=== PATIENT | female | born 1975 | race Caucasian/White ===

== ENCOUNTER 2018-02-13 07:05 | Day surgery (SDC) | payer OTHER, SELFPAY ==
[2018-02-12 10:56] VITALS: BMI 26.6
--- NOTE | 2018-02-13 | SKTAG_PTH ---
PATIENT: JEEVAN PRATT [place] [facility] [id number] AGE/SX: 42/F ROOM: RE02/13/[address]: Dr. Deirdre Logan MD : 1975 BED: DIS: 02/13/2018 SPEC #: [id number] RECD: 02/13/18 12:51 STATUS: JONO ELVER #: [id number] SURY: 02/13/18 00:[address]: Deirdre Malcolm DEPT: SURGICAL PATHOLOGY RECD BY: Parveen Frias ENTERED: 02/13/18 12:52 SP TYPE: SKIN TAG OTHR DR: Kaley Owusu PA-C Tissues: A - Labium, NOS B - Vulva, NOS C - Vulva, NOS Procedures: Surgery Specimen Level IV HEADER OPERATION: Excision vulvar cyst, left skin tag removal, punch biopsy left PRE-OP DIAGNOSIS: Vulvar cyst, skin tag of vulva TISSUE SUBMITTED: A ? Skin tags left labia, B ? Vulvar cyst, C ? Punch biopsy left vulva MICROSCOPIC DIAGNOSIS A. Skin tags, left labia, biopsy: Intradermal nevi x2. B. Vulvar cyst: Consistent with fibroma. See comment. C. Left vulva, punch biopsy: Dermal chronic inflammation. Hyperkeratosis and parakeratosis. Negative for malignancy. SJ:polo 02/14/18 COMMENT B - Immunohistochemistry ([id number]) supports the above diagnosis. Case has been reviewed in consultation with Dr. Felipe who concurs with the above diagnosis. IDC:AM MICROSCOPIC DESCRIPTION Slides are reviewed. GROSS DESCRIPTION A - Received in fixative is one container labeled with the patient's name and designated skin tags left labia. The specimen consists of a polypoid piece of andrade-white skin measuring 1 x 0.5 x 0.4 cm. Also present in the container is a piece of andrade soft tissue measuring 0.3 x 0.2 x 0.1. The entire specimen is submitted in one cassette. B - Received in fixative is one container labeled with the patient's name and designated vulvar cyst. The specimen consists of a piece of andrade, nodular tissue measuring 2.5 x 1.5 x 1.5 cm. The specimen is inked and reveals andrade, solid cut surfaces. The entire specimen is submitted in three cassettes. C - Received in fixative is one container labeled with the patient's name and designated punch biopsy left vulva. The specimen consists of a punch biopsy of andrade-white skin measuring 0.3 cm in diameter and 0.3 cm in length. The specimen is totally submitted in one cassette. / NISREEN:polo 02/13/18 TC:1 CPT: 95776 x3
--- NOTE | 2018-02-13 | IMM_PTH ---
PATIENT: JEEVAN PRATT LOC: [facility] – [place] U#:[id number] AGE/SX: 42/F ROOM: RE02/13/[address]: Dr. Deirdre Logan MD : 1975 BED: DIS: 02/13/2018 SPEC #: [id number] RECD: 02/14/18 07:43 STATUS: JONO REQ #: [id number] SURY: 02/13/18 00:[address]: Deirdre Malcolm DEPT: IMMUNOHISTOCHEMISTRY RECD BY: Judith Wilson ENTERED: 02/17/18 07:44 SP TYPE: IMMUNO OTHR DR: Kaley Owusu PA-C Tissues: Vulva, NOS Procedures: SMA (add) CD34 (add) DESMIN (add) Vimentin (initial) S-100 (add) PHYSICIAN & INSTITUTION [place] [id number] SPECIMEN INFORMATION: Tissue Source: B ? Vulvar cyst Clinical Info: Vulvar cyst Specimen Number: [id number] B3 CPT code: 10636, 78075 x4 METHODOLOGY: Deparaffinized sections of prefer/formalin-fixed tissue or PAP/DQ stained slides are incubated with monoclonal/polyclonal antibodies/oligonucleotide probes. Localization is made via biotin free immunoperoxidase method. Appropriate controls are performed and reacted as expected. Results on target cell population are indicated in the following table: RESULTS: ANTIBODY / CLONE RESULT Block B3 Vimentin (V9) positive Desmin (CE-R-11) negative S-100 (4C4.9) negative CD34 (QBEnd-10) negative Actin (1A4) negative These tests were developed and their performance characteristics determined by [facility]. They may not have been cleared or approved by the U.S. Food and Drug Administration. The FDA has determined that such clearance or approval is not necessary. INTERPRETATION: B. Vulvar cyst: Consistent with fibroma. NISREEN:polo 02/17/18 Case has been reviewed in consultation with Dr. Felipe who concurs with the above diagnosis. IDC:AM
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
[2018-02-13 07:42] LABS: Internal QC Validated? YES +Cl - CLEAR BKGD; Pregnancy, Urine Negative Negative
[2018-02-13 07:45] LABS: Hematocrit 41.1 % (37-47); Hemoglobin 13.7 g/dl (12.0-15.0); Mean Corp Hgb Conc 33.3 g/gl (32-36); Mean Corpuscular Hgb 29.9 pg (27.0-32.0); Mean Corpuscular Volume 89.7 fL (81-99); Mean Platelet Vol. 10.5 fl (6.2-12.0); Platelet Count 192 K/mm3 (150-450); RBC Distribution Width CV 12.5 % (11.6-14.6); RBC Distribution Width SD 40.9 fl (35.1-43.9); Red Blood Count 4.58 M/mm3 (4.2-5.4); White Blood Count 5.8 K/mm3 (4.4-11.0)
[2018-02-13 07:46] LABS: Scan Indicated on CBC? Y/N NO
[2018-02-13 07:52] VITALS: BP 138/87; PULSE 63; RESP 16; TEMP 36.6; O2SAT 100; BMI 26.4
[2018-02-13 07:55] LABS: International Normalized Ratio 1.1
[2018-02-13 07:56] LABS: Partial Thromboplast Time 29.6 Seconds (24.1-36.2)
[2018-02-13] MEDS: Vasopressin 20 UNITS/ML Vial (09:37)
[2018-02-13] MEDS: Silver Sulfadiazine 1% Crm 50 gm Bottle 1 APPLIC TOPICAL (10:25)
[2018-02-13 10:41] VITALS: BP 121/80; BP 138/87; PULSE 98; RESP 16; TEMP 36.4; O2SAT 99
--- NOTE | 2018-02-13 10:50 | PCM.DC ---
- Discharge Diagnoses Reason(s) for Visit for Discharge Instructions: Vulvar cyst and skin tags removal You will use the following diet at home:: No restrictions Your food should be the consistency of: Regular Your liquids should be the consistency of: Regular/Thin Discharge Activity: Return to Normal Activity, May not drive while taking narcotic pain medications., May Shower, May Take a Tub Bath, - - Avoid prolonged sitting, bicycling, horseback riding or any activities requiring a saddle or harness May resume sexual activity in: - - 2-4 weeks Lifting Restrictions: 10- 20 lb Call your doctor if you observe: Fever of 101 or Higher, Inability to urinate, Inability to have a bowel movement, Using more than one pad per hour, Shortness of breath, Uncontrolled pain Cleanse incision/area with: Soap & Water Additional Dressing/Incision Instructions:: Apply silver sulfadiazine cream to surgical sites twice daily x 1 weeks Allergies/Adverse Reactions: Allergies Penicillins [PCN] Allergy (Verified 02/07/18 13:29) Hives Medications to take at Discharge Fluticasone 0.05% [Flonase Nasal [place]] 1 spray NASAL DAILY 06/06/15 L.acidoph,Paracasei, B.lactis [Probiotic] 1 each PO DAILY 02/07/18 Ibuprofen 600 mg PO TID #30 tab 02/13/18 Oxycodone [Oxyir] 5 mg PO Q6H PRN PRN 1 Days #4 tablet 02/13/18 Silver Sulfadiazine 1% Crm [Silvadene Cream] 1 applic TOPICAL BID bottle 02/13/18 The following prescriptions were given: Oxycodone [Oxyir] 5 mg PO Q6H PRN PRN 1 Days #4 tablet PRN Reason: Severe Pain (6-10/10) Ibuprofen 600 mg PO TID #30 tab Primary Care Physician: Kaley Owusu PA-C [Primary Care Provider] - Test Results: Test results from this visit will be discussed in further detail at your follow-up appointment, if applicable. Please Follow Up With: Deirdre Benoit MD When: 2 weeks
--- NOTE | 2018-02-13 10:54 | DCINST_ITS ---
- Discharge Diagnoses Reason(s) for Visit for Discharge Instructions: Vulvar cyst and skin tags removal You will use the following diet at home:: No restrictions Your food should be the consistency of: Regular Your liquids should be the consistency of: Regular/Thin Discharge Activity: Return to Normal Activity, May not drive while taking narcotic pain medications., May Shower, May Take a Tub Bath, - - Avoid prolonged sitting, bicycling, horseback riding or any activities requiring a saddle or harness May resume sexual activity in: - - 2-4 weeks Lifting Restrictions: 10- 20 lb Call your doctor if you observe: Fever of 101 or Higher, Inability to urinate, Inability to have a bowel movement, Using more than one pad per hour, Shortness of breath, Uncontrolled pain Cleanse incision/area with: Soap & Water Additional Dressing/Incision Instructions:: Apply silver sulfadiazine cream to surgical sites twice daily x 1 weeks Allergies/Adverse Reactions: Allergies Penicillins [PCN] Allergy (Verified 02/07/18 13:29) Hives Medications to take at Discharge Fluticasone 0.05% [Flonase Nasal [place]] 1 spray NASAL DAILY 06/06/15 L.acidoph,Paracasei, B.lactis [Probiotic] 1 each PO DAILY 02/07/18 Ibuprofen 600 mg PO TID #30 tab 02/13/18 Oxycodone [Oxyir] 5 mg PO Q6H PRN PRN 1 Days #4 tablet 02/13/18 Silver Sulfadiazine 1% Crm [Silvadene Cream] 1 applic TOPICAL BID bottle The following prescriptions were given: Oxycodone [Oxyir] 5 mg PO Q6H PRN PRN 1 Days #4 tablet PRN Reason: Severe Pain (6-10/10) Ibuprofen 600 mg PO TID #30 tab Primary Care Physician: Kaley Owusu PA-C [Primary Care Provider] - Test Results: Test results from this visit will be discussed in further detail at your follow- up appointment, if applicable. Please Follow Up With: Deirdre Benoit MD When: 2 weeks
[2018-02-13 11:00] VITALS: BP 133/91; BP 138/87; PULSE 83; RESP 16; O2SAT 98
[2018-02-13 11:15] VITALS: BP 134/90; BP 138/87; PULSE 82; RESP 16; O2SAT 98
[2018-02-13 11:25] VITALS: BP 131/93; BP 138/87; PULSE 67; RESP 16; TEMP 36.8; O2SAT 97
[2018-02-13 12:30] VITALS: BP 127/66; BP 138/87; PULSE 67; RESP 16; TEMP 36.7; O2SAT 100
--- NOTE | 2018-02-14 06:45 | OP.PCM_ITS ---
Problem List (1) Vulvar cyst Status: Acute (2) Skin tag of vulva Status: Chronic Report of Operation Date of Procedure: 02/13/18 Pre-Operative Diagnosis: Vulvar cyst, vulvar skin tag, vulvar ulceration Post-Operative Diagnosis: Vulvar cyst, vulvar skin tag, vulvar ulceration Surgery/Procedure Performed:: 1. Left vulvar mass excision. 2. Left vulvar skin tags removal. 3. Left vular punch biopsy Description of Surgical Findings:: 22mm solid nodule removed from left vulva Two skin tags Punch biopsy of area with fine skin erosion just left of perineum Type of Anesthesia:: General Anesthesiologist: Stepan Saunders Specimen's removed: 1. Left vulvar mass/cyst. 2. Left vulvar skin tags x 2. 3. Left vulvar punch biopsy Estimated Blood Loss (mL): 5 Description of Procedure: Kaye was brought to the OR and sign in performed. She was placed into dorsal supine position and induced under anesthesia and LMA placed. She was repositioned into dorsolithotomy and an examination under anesthesia was performed. The perineum and vagina were prepped and draped in sterile fashion and time out performeed. Stay sutures of 3-0 Vicryl were placed to retract the left labia minora to the outer vulva and groin. A total of 20cc of dilute vasopressin (20U in 100 mL Normal saline) was injected around the vulvar cyst/ nodule bed. A 2cm superficial incision was made on the internal labial surface and careful sharp and blunt dissection performed enucleating the cyst in its entirety from the labia. The cyst appeared to be above the layer of the muscular tissues. The connective tissues were reapproximated using 3-0 Vicryl Rapide and the skin was reapproximated using the same suture with horizontal mattress sutures. The labial retraction sutures were cut and removed. There was a 1cm and a subcentimeter skin tag on the left labia majora. The larger one was grasped using an Allis clamp and shave biopsy performed. There remaining skin was reapproximated using 3-0 Vicryl Rapide simple interrupted sutures. In similar fashion the smaller skin tag was removed. There was hemostasis and no suture was needed. Attention was turned to the left posterior forchette where there appeared to be a patch of small erosive lesion. A 3mm punch biopsy was performed. A single suture of 3-Vicryl Rapide was placed with hemostasis. Silver sulfadiazine cream was placed on the surgical sites. The patient was then placed in the dorsal supine position, awakened, extubated and transferred to the recovery room without complication. Sponge and needle counts were correct x 2. - Complications None - Admit VTE Documentation VTE Present on Admission: No VTE Mechan Device Prophylaxis: SCD's VTE Pharm Prophylaxis ordered?: No
== END 2018-02-13 12:46 | disposition home or self-care (01) ==
LOC: SDC 07:07 → AC 07:08
PROVIDERS: Family Provider Family Medicine; PCP Family Medicine; Visit Provider Obstetrics & Gynecology
PROC: (CPT 11200; principal; 2018-02-13 08:30)
DX: N90.7 Vulvar cyst (principal); D28.0 Benign neoplasm of vulva; N90.4 Leukoplakia of vulva; I10 Essential (primary) hypertension; J45.909 Unspecified asthma, uncomplicated
CPT/HCPCS: 11200; 11423; 81025; 85027; 85610; 85730; 86850; 86900; 88305; 88341; 88342; J7120; J2405

== ENCOUNTER → 2018-02-21 15:12 | Outpatient (CLI) | payer OTHER, SELFPAY ==
[2018-02-21 16:32] LABS: Hematocrit 41.9 % (37-47); Hemoglobin 14.3 g/dl (12.0-15.0); Mean Corp Hgb Conc 34.1 g/gl (32-36); Mean Corpuscular Hgb 30.3 pg (27.0-32.0); Mean Corpuscular Volume 88.8 fL (81-99); Mean Platelet Vol. 10.9 fl (6.2-12.0); Platelet Count 250 K/mm3 (150-450); RBC Distribution Width CV 12.6 % (11.6-14.6); RBC Distribution Width SD 40.4 fl (35.1-43.9); Red Blood Count 4.72 M/mm3 (4.2-5.4); White Blood Count 8.6 K/mm3 (4.4-11.0)
[2018-02-21 16:33] LABS: Scan Indicated on CBC? Y/N NO
== END ==
PROVIDERS: Visit Provider Obstetrics & Gynecology
DX: T14.8XXA Other injury of unspecified body region, initial encounter (principal)
CPT/HCPCS: 36415; 85027

== ENCOUNTER → 2021-11-02 | Outpatient (CLI) | payer MEDICAID, SELFPAY ==
[2021-11-02 11:15] LABS: Absolute Lymphocyte Count 2.09 X10^3/uL (0.83-4.51); Absolute Neutrophil Count 3.8 X10^3/uL (2.0-7.7); Basophil% 1.4 % (0-1); Eosinophil# 0.28 X10^3/uL; Hemoglobin 10.6 g/dL (12.0-15.0); Lymphocyte # 2.09 X10^3/ul (0.83-4.51); Lymphocyte % 30.2 % (19-41); Mean Corp Hgb Conc 31.2 g/dL (32-36); Mean Corpuscular Hgb 25.5 pg (27.0-32.0); Mean Corpuscular Volume 81.7 fL (81-99); Mean Platelet Vol. 10.8 fl (6.2-12.0); Monocyte# 0.61 X10^3/uL; Monocyte% 8.8 % (0-10); NRBC Flagged by Analyzer 0 % (0-5); Neutrophil # 3.83 X10^3/uL (2.7-7.7); Neutrophil % 55.3 % (47-70); Platelet Count 309 K/mm3 (150-450); RBC Distribution Width CV 14.3 % (11.6-14.6); Red Blood Count 4.16 M/mm3 (4.2-5.4); White Blood Count 6.9 K/mm3 (4.4-11.0)
[2021-11-02 11:18] LABS: Erythrocyte Sedimentation Rate 4 mm/hr (0-30)
[2021-11-02 12:00] LABS: ALB/GLOB Ratio 1.1 RATIO (0.9-2.4); AST(SGOT) 18 U/L (15-37); Alanine Aminotransfer ALT/SGPT 22 U/L (13-56); Albumin, Serum 3.8 g/dL (3.2-5.0); Alkaline Phosphatase 41 U/L (45-117); Anion Gap 6 (5-15); BUN 9 mg/dL (7-18); CRP < 2.90 mg/L (0.0-3.0); Calcium,Total 8.7 mg/dL (8.5-10.1); Chloride 107 mmol/L (98-107); Creatinine, Serum 0.82 mg/dL (0.55-1.02); EST Glomerular Filtration Rate 80 mL/min (>60); Est Glom Filt Rate - Afr Amer 97 mL/min (>60); Globulin 3.5 g/dL (2.2-4.2); Glucose 91 mg/dL (74-106); Potassium 3.7 mmol/L (3.5-5.1); Protein, Total 7.3 g/dL (6.4-8.2); Sodium Level 139 mmol/L (136-145)
[2021-11-03 14:10] LABS: Anti-Centromere B Ab <0.2 AI (0.0-0.9); Anti-Chromatin <0.2 AI (0.0-0.9); Anti-Jo <0.2 AI (0.0-0.9); Anti-Scleroderma-70 AB <0.2 AI (0.0-0.9); RNP Ab 0.2 AI (0.0-0.9); SJOGREN'S Anti-SS-A test < 0.2 AI (0.0-0.9); SJOGREN'S Anti-SS-B test < 0.2 AI (0.0-0.9); Smith Ab <0.2 AI (0.0-0.9)
[2021-11-03 14:52] LABS: Bilirubin, Direct 0.35 mg/dL (0.00-0.30)
[2021-11-03 16:41] LABS: Anti-dsDNA Ab 1 IU/mL (0-9)
== END | disposition home or self-care (01) ==
LOC: LAB 10:28
PROVIDERS: PCP Family Medicine; Referring Provider Nurse Practitioner Adult Health; Visit Provider Nurse Practitioner Adult Health
DX: K22.4 Dyskinesia of esophagus (principal); R12 Heartburn; I69.891 Dysphagia following other cerebrovascular disease; R13.10 Dysphagia, unspecified
CPT/HCPCS: 36415; 80053; 82248; 85025; 85652; 86140; 86225; 86235

== ENCOUNTER → 2021-11-10 | Outpatient (CLI) | payer MEDICAID, SELFPAY ==
--- NOTE | 2021-11-10 11:08 | US_ITS ---
STUDY: ABDOMINAL ULTRASOUND - RIGHT UPPER QUADRANT REASON FOR VISIT: Female, 46 years old. ABDOMEN PAIN elevated bilirubin -- RUQ US TECHNIQUE: Ultrasound evaluation of the right upper quadrant was performed with real-time and static arnold-scale imaging. TECHNICAL QUALITY: Adequate. COMPARISON: None. FINDINGS: Liver: There is normal echogenicity of the liver. The bile ducts are within normal limits. There is hepatic color flow. The direction of portal flow is hepatopetal. There is no demonstrated mass lesion. Gallbladder: Normal distended gallbladder. The gallbladder wall measures 1.8 mm. There is a negative sonographic Solis''s sign. There is no pericholecystic fluid. There are no gallstones. Common Bile Duct (C.B.D.): The common bile duct measures ( in mm): 4.7 Pancreas: Normal size of the head, body of the pancreas. There is normal echogenicity of the pancreas. There is no demonstrated pancreatic mass or cyst. Right Kidney: Normal size of the right kidney. The right kidney measures 10.7 cm. . Normal renal cortex. There is no demonstrated renal mass or cyst. There is no right hydronephrosis. Aorta: It is not visualized. There is too much overlying bowel gas. . US/Abdomen Limited IMPRESSION: No acute findings. Note: Renal size measurements and size measurements of other organs etc may vary depending on modality and treating machine operator dependent variations in measurements. (i.e. Measuring a kidney on an US does not correlate with an exact same measurement on a CT.) Electronically Signed: Freedom Livingston MD at 14:22 EDT ,
--- NOTE | 2021-11-10 11:08 | RAD_ITS ---
INDICATION: dysphagia, esophageal spasms, heartburn EXAMINATION/TECHNIQUE: Thick and thin barium oral contrast , gas bubbles, and barium pill were administered to the patient. Total Fluoroscopic Time: 33 seconds AND number of Fluoroscopic Images: 9 COMPARISON: None. FINDINGS: No masses or strictures are identified. There is no hiatal hernia. The mucosal pattern is unremarkable. There is normal motility. Reflux was not elicited. RAD/Esophagus Dual Contrast IMPRESSION: Negative. Electronically Signed: Emmanuel Roper, at 12:59 EDT ,
[2021-11-10 12:39] LABS: Absolute Lymphocyte Count 1.78 X10^3/uL (0.83-4.51); Absolute Neutrophil Count 4.2 X10^3/uL (2.0-7.7); Basophil# 0.07 X10^3/uL; Eosinophil# 0.35 X10^3/uL; Hematocrit 35.4 % (37-47); Hemoglobin 10.8 g/dL (12.0-15.0); Lymphocyte # 1.78 X10^3/ul (0.83-4.51); Lymphocyte % 25.5 % (19-41); Mean Corp Hgb Conc 30.5 g/dL (32-36); Mean Corpuscular Hgb 24.8 pg (27.0-32.0); Mean Corpuscular Volume 81.2 fL (81-99); Mean Platelet Vol. 11.2 fl (6.2-12.0); Monocyte# 0.57 X10^3/uL; Monocyte% 8.2 % (0-10); NRBC Flagged by Analyzer 0 % (0-5); Neutrophil # 4.19 X10^3/uL (2.7-7.7); Platelet Count 308 K/mm3 (150-450); RBC Distribution Width CV 14.8 % (11.6-14.6); RET-HE 27.4 pg (30-35); Red Blood Count 4.36 M/mm3 (4.2-5.4); Reticulocyte Count 1.35 % (0.5-1.5)
[2021-11-10 13:11] LABS: AST(SGOT) 18 U/L (15-37); Alanine Aminotransfer ALT/SGPT 23 U/L (13-56); Alkaline Phosphatase 41 U/L (45-117); Amylase 70 U/L (25-115); Bilirubin, Direct 0.35 mg/dL (0.00-0.30); Ferritin 6 ng/mL (8-252); Globulin 3.5 g/dL (2.2-4.2); Iron 30 ug/dL (50-170); Iron Binding Capacity,Total 446 ug/dL (250-450); Lipase 162 U/L (73-393); Protein, Total 7.5 g/dL (6.4-8.2)
== END | disposition home or self-care (01) ==
PROVIDERS: PCP Family Medicine; Referring Provider Nurse Practitioner Adult Health; Visit Provider Nurse Practitioner Adult Health
DX: D64.9 Anemia, unspecified (principal); R12 Heartburn; K22.4 Dyskinesia of esophagus; R13.10 Dysphagia, unspecified; R17 Unspecified jaundice
CPT/HCPCS: 36415; 74221; 76705; 80076; 82150; 82728; 83540; 83550; 83690; 85025; 85045

== ENCOUNTER → 2021-12-15 | Outpatient (CLI) | payer MEDICAID, SELFPAY ==
[2021-12-15 15:42] LABS: Hemoglobin A1c 5.2 % (3.8-5.6)
[2021-12-15 15:54] LABS: LDH 203 U/L (84-246)
[2021-12-16 01:08] LABS: HIV - WCH Non-Reactive (Nonreactive)
[2021-12-19 14:00] LABS: Anti-Mitochondrial AB <20.0 Units (0.0-20.0)
[2021-12-19 21:07] LABS: Angiotensin Convert Enzyme 32 U/L (14-82); Ceruloplasmin 21.3 mg/dL (19.0-39.0); Cytoplasmic Ab (C-ANCA) <1:20 titer (Neg:<1:20); HEPATITIS B SURFACE AG Negative (Negative); Hep C Antibodies <0.1 s/co ratio (0.0-0.9); Hepatitis A IgM Antibody Negative (Negative); Hepatitis B Core AB IgM Negative (Negative)
[2021-12-21 12:40] LABS: Anti-Smooth Muscle ABS 6 Units (0-19); Copper, Serum or Plasma 108 ug/dL (80-158); Haptoglobin 106 mg/dL (42-296); Perinuclear Ab (P-ANCA) <1:20 titer (Neg:<1:20)
== END | disposition home or self-care (01) ==
LOC: LAB 14:09
PROVIDERS: PCP Family Medicine; Referring Provider Nurse Practitioner Adult Health; Visit Provider Nurse Practitioner Adult Health
DX: D50.9 Iron deficiency anemia, unspecified (principal); R17 Unspecified jaundice
CPT/HCPCS: 36415; 80074; 82140; 82164; 82390; 82525; 83010; 83036; 83516; 83615; 84443; 85610; 86256; 86703

== ENCOUNTER 2021-12-21 10:40 | Day surgery (SDC) | payer MEDICAID, SELFPAY ==
[2021-12-21] VITALS (7 sets, daily range): BP systolic 134–163; BP diastolic 66–98; PULSE 52–66; RESP 14–18; TEMP 36.6–36.9; O2SAT 97–100; BMI 29.6
[2021-12-21 11:19] LABS: Internal QC Validated? YES +Cl - CLEAR BKGD; Pregnancy, Urine Negative Negative
[2021-12-21] MEDS: Lactated Ringers 1,000 ML 15 ML IV (11:19)
--- NOTE | 2021-12-21 11:38 | PCM.HP.BLA ---
History and Physical Date of Admission: 12/21/21 JEEVAN PRATT, is a 46 F who presents to the office today for possible eosinophilic esophagitis.? She has had esophageal symptoms since college, they have worsened in the past half year.? Her maternal grandmother, mother and brother all have eosinophilic esophagitis.? Her brother is treated with Flovent which he swallows. For years she has sensation of food getting stuck in her midesophagus, especially shredded meats, bread and broccoli.? Has regurgitated food once.? She gets painful spasms in the esophagus which radiate to the back.? For approximately the past 4 months she has had about 1 episode per month of when she lies down to go to bed she gets significant heartburn, and a seizing feeling in her esophagus.? She has to get up out of bed, sits up, takes about 30 minutes to get the esophagus to relax.? She is only recently started getting heartburn.? No treatment other than OTC Tums at night for heartburn recently.? The spasms and muscle contractions and seizing of the esophageal muscles are most bothersome to her.? No nausea or vomiting or hematemesis.? She denies any abdominal pain.? She has no bowel complaints.? Denies diarrhea, constipation, melena, hematochezia. She has seasonal allergies, no known food allergies. She takes zyrtec and flonase daily. Hx of exercise induced asthma in agus high, not problematic as an adult, only uses albuterol inhaler with URI. No eczema. No FH atopy. Diagnosed last year with mild spinal bifida, takes gabapentin which is effective for back pain, takes meloxicam approx QOD.? Comorbidities also include depression, restless legs, tension for which she was on medication in her 20s. She has 3 children ages 12-17.? 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 No tobacco or illicit drugs.? Only rare alcohol. ROS Const Constitutional: No fatigue ENT ENT: No difficulty swallowing Gastro GI: No abdominal pain, belching, bloating, change in bowel habits, change in stool character, coffee ground emesis, constipation, cramping, diarrhea, heartburn, difficulty swallowing, feeling full early, excessive flatus, incontinent of stools, Vomiting blood/hematemesis, Blood in stool, loose stools, Black,tarry stools, nausea/dyspepsia, pain with swallowing, vomiting or other Musc Musculoskeletal: Positive for restless legs; No joint pain Skin Skin: No yellowing of the eye or itchy eyes Neuro Neurology: Positive for restless legs Psych Psychiatric: Positive for anxiety and No depression Endo Endocrine: No fatigue Aller/Imm Allergy/Immunologic: No itchy eyes Priyank/Lymp Hematologic/Lymphatic: No easy bleeding or easy bruising Exam Const General: cooperative, comfortable, well developed and well groomed Eyes General: appearance normal, both eyes and all related structures Neck Neck: normal visual inspection Resp Effort & Inspection: normal respiratory effort GI Inspection: normal to inspection Auscultation: normal bowel sounds Palpation: soft, no hepatosplenomegaly, no masses and nontender Skin General: no rashes or lesions noted Neuro Gait: normal gait Extrem General: no pedal edema Psych Mood: euthymic mood Affect: normal affect Quality Reporting Tobacco Screening ([facility] 138) Smoking Status: Never smoker Assessment and Plan Assessment and Plan (1) Esophageal spasm: ?Status:?Acute (2) Heartburn: ?Status:?Acute (3) Dysphagia: ?Status:?Inactive (4) Dysphagia: ?Status:?Acute ? ? ? Orders:?Orders: ? Comprehensive Metabolic Profil Today K22.4, R12, R13.10, R13.10 ? ? CRP Today K22.4, R12, R13.10, R13.10 ? ? CBC W/Diff, Automated Today K22.4, R12, R13.10, R13.10 ? ? Erythrocyte Sed Rate Today K22.4, R12, R13.10, R13.10 ? ? SARIKA Comprehensive Panel Today K22.4, R12, R13.10, R13.10 ? ? Esophagus Dual Contrast Today K22.4, R12, R13.10, R13.10 ?Plan - Palma Lucero COMPLIANCE PROFESSIONAL, COMPLIANCE PROFESSIONAL-C: 46-year-old female with long history of food sticking in the esophagus, esophageal spasms, and more recent heartburn.? There is a very strong family history of eosinophilic esophagitis.? We discussed that diagnosis as well as heartburn, esophageal spasms, dysphagia, Garcia's esophagus.? We will have her start PPI, Rx for pantoprazole 40 mg every morning.? We will see if that helps any of her symptoms in addition to the heartburn itself. Biochemical w/u to evaluate CBC for eosinophils, inflammatory markers, and comprehensive SARIKA panel.? She has no autoimmune disorders.? We will schedule her for EGD, we discussed possible manometry but she would like to hold off on that if possible.? In the meantime we will get an esophagram.? I will be in touch with results, and we will schedule follow-up appointment. Plan Details Other Medications: ?New: ? pantoprazole 40 mg? PO DAILY 90 tabs 1RF ?Discontinued: ? L.acidoph, paracasei,B. lactis ?? Discontinued Reason:? Pt no longer taking 1 ea? PO DAILY ? ? ? oxycodone ?? Discontinued Reason:? Pt no longer taking 5 mg? PO Q6H PRN 1 day PRN 4 TABLETS 0RF Severe Pain (6-10/10) N90.7 ? ? silver sulfadiazine 1% ?? Discontinued Reason:? Pt no longer taking 1 applic See Protocol topical BID 0RF ? ? ? ibuprofen ?? Discontinued Reason:? Pt no longer taking 600 mg? PO TID 30 tabs 0RF pain ? ? I have re-examined the patient. There are no clinical changes since date of exam.
--- NOTE | 2021-12-21 11:45 | EGD_PTH ---
PATIENT: JEEVAN PRATT LOC: [facility] U#:[id number] AGE/SX: 46/F ROOM: RE12/21/[address]: Dr. Kurt Daniels DO : 1975 BED: DIS: 12/21/2021 SPEC #: [id number] RECD: 12/21/21 14:12 STATUS: JONO ELVER #: [id number] SURY: 12/21/21 11:[address]: Kurt Daniels DEPT: SURGICAL PATHOLOGY RECD BY: Sofia Morton ENTERED: 12/22/21 08:08 SP TYPE: EGD BIOPSY OT DR: Kaley Owusu PA-C Tissues: A - Gastric mucous membrane B - Esophagus, NOS C - Esophagus, NOS Procedures: Special Stain Group II Surgery Specimen Level IV Alcian Blue/PAS (control) HEADER OPERATION: EGD ([facility]), biopsy PRE-OP DIAGNOSIS: Esophageal spasm, heartburn, dysphagia TISSUE SUBMITTED: A ? Gastric antrum biopsy for histo and H. pylori, B ? Distal esophagus biopsy, C ? Random esophagus biopsy MICROSCOPIC DIAGNOSIS A. Gastric antrum, biopsy: Mild gastritis. See microscopic description and comment. B. Distal esophagus, biopsy: A fragment of gastroesophageal mucosa with chronic inflammation. Intestinal metaplasia (goblet cell metaplasia) not identified. See comment. C. Esophagus, random biopsy: Fragments of squamous epithelium with mild congestion. AM:polo 12/25/2021 COMMENT A. The results of immunohistochemistry for Helicobacter pylori will be reported separately ([id number]). B. Alcian blue/PAS stain with matched control is used in the evaluation of the specimen. MICROSCOPIC DESCRIPTION Slides are reviewed. A. The specimen shows fragments of gastric mucosa with chronic inflammatory cell infiltrates in the lamina propria consisting of lymphocytes and plasma cells, consistent with mild chronic gastritis. GROSS DESCRIPTION A - Received in fixative is one container labeled with the patient's name and designated antrum biopsy. The specimen consists of two irregular fragments of light andrade soft tissue that in aggregate measure 0.5 x 0.3 x 0.1 cm. The specimen is totally submitted in one cassette. B - Received in fixative is one container labeled with the patient's name and designated distal esophagus biopsy. The specimen consists of one irregular fragment of light andrade soft tissue that measures 0.6 x 0.2 x 0.1 cm. The specimen is totally submitted in one cassette. C - Received in fixative is one container labeled with the patient's name and designated random esophageal biopsy. The specimen consists of multiple irregular fragments of light adnrade soft tissue that in aggregate measure 0.7 x 0.6 x 0.1 cm. The specimen is totally submitted in one cassette. / AM:polo 12/22/2021 TC:3 CPT: 49403 x3, 62934
--- NOTE | 2021-12-21 11:45 | IMM_PTH ---
PATIENT: JEEVAN PRATT LOC: [facility] U#:[id number] AGE/SX: 46/F ROOM: RE12/21/[address]: Dr. Kurt Daniels DO : 1975 BED: DIS: 12/21/2021 SPEC #: [id number] RECD: 12/22/21 09:25 STATUS: JONO ELVER #: [id number] SURY: 12/21/21 11:[address]: Kurt Daniels DEPT: IMMUNOHISTOCHEMISTRY RECD BY: Judith Wilson ENTERED: 12/22/21 09:26 SP TYPE: IMMUNO OT DR: Kaley Owusu PA-C Tissues: A - Stomach, NOS Procedures: H Pylori (initial) PHYSICIAN & INSTITUTION [place] [id number] SPECIMEN INFORMATION: Tissue Source: A ? Gastric antrum biopsy Clinical Info: Esophageal spasm, heartburn, dysphagia Specimen Number: [id number] CPT code: 66938 METHODOLOGY: Deparaffinized sections of prefer/formalin-fixed tissue or PAP/DQ stained slides are incubated with monoclonal/polyclonal antibodies/oligonucleotide probes. Localization is made via biotin free immunoperoxidase method. Appropriate controls are performed and reacted as expected. Results on target cell population are indicated in the following table: RESULTS: ANTIBODY / CLONE RESULT Block A H Pylori (polyclonal) negative These tests were developed and their performance characteristics determined by [facility]. They may not have been cleared or approved by the U.S. Food and Drug Administration. The FDA has determined that such clearance or approval is not necessary. The above immunohistochemical/dualISH markers are ordered and reviewed by the Pathologist. INTERPRETATION: A. Gastric antrum, biopsy: Negative for Helicobacter pylori organisms. NISREEN:polo 12/25/2021
--- NOTE | 2021-12-21 12:31 | OP.CCLET_ITS ---
03/07/2022 [facility] Re : Upper GI endoscopy procedure for Kaye Billy Corey Owusu This procedure was performed on December. My impressions and recommendations are as follows: Impressions : - Abnormal esophageal motility, suspicious for esophageal spasm. - Z-line, 35 cm from the incisors. Biopsied. - Erythematous mucosa in the antrum. Biopsied. - Normal second portion of the duodenum. Recommendations : - Discharge patient to home. - Resume previous diet. - Continue present medications. - Await pathology results. - Repeat upper endoscopy. - Return to GI office. My findings are described in the full procedure note, which is enclosed. If I can be of further assistance, please feel free to contact me at . Sincerely, Kurt Daniels, 12/21/2021 12:30:55 PM This report has been signed electronically.
--- NOTE | 2021-12-21 12:31 | OP.EGD_ITS ---
Patient Name: Kaye Billy Procedure Date: 12/21/2021 12:09 PM Date of : 1975 Age: 46 Procedure: Upper GI endoscopy Indications: Dysphagia Providers: Kurt Daniels DO Referring MD: Kaley Owusu Medicines: Monitored Anesthesia Care Patient Profile: This is a 46 year old female. Refer to note in patient chart for documentation of history and physical. Patient has symptoms. Complications: No immediate complications. Procedure: Pre-Anesthesia Assessment: - Prior to the procedure, a History and Physical was performed, and patient medications and allergies were reviewed. The risks and benefits of the procedure and the sedation options and risks were discussed with the patient. All questions were answered and informed consent was obtained. Patient identification and proposed procedure were verified by the physician in the pre-procedure area. Mental Status Examination: alert and oriented. Airway Examination: normal oropharyngeal airway and neck mobility. Respiratory Examination: clear to auscultation. CV Examination: normal. Prophylactic Antibiotics: The patient does not require prophylactic antibiotics. Prior Anticoagulants: The patient has taken no previous anticoagulant or antiplatelet agents. After reviewing the risks and benefits, the patient was deemed in satisfactory condition to undergo the procedure. The anesthesia plan was to use moderate sedation / analgesia (conscious sedation). Immediately prior to administration of medications, the patient was re-assessed for adequacy to receive sedatives. The heart rate, respiratory rate, oxygen saturations, blood pressure, adequacy of pulmonary ventilation, and response to care were monitored throughout the procedure. The physical status of the patient was re-assessed after the procedure. After obtaining informed consent, the endoscope was passed under direct vision. Throughout the procedure, the patient's blood pressure, pulse, and oxygen saturations were monitored continuously. The Endoscope was introduced through the mouth, and advanced to the second part of duodenum. The upper GI endoscopy was accomplished without difficulty. The patient tolerated the procedure well. Scope In: 12:20:11 PM Scope Out: 12:23:43 PM Total Procedure Duration Time 0 hours 3 minutes 32 seconds Findings: Abnormal motility was noted in the esophagus. The cricopharyngeus was abnormal. There is spasticity of the esophageal body. The distal esophagus/lower esophageal sphincter is spastic, but gives up passage to the endoscope. Tertiary peristaltic waves are noted. The Z-line was [Irregular] found 35 cm from the incisors. Biopsies were taken with a cold forceps for histology. Localized mildly erythematous mucosa without bleeding was found in the gastric antrum. Biopsies were taken with a cold forceps for histology. Verification of patient identification for the specimen was done. Estimated blood loss was minimal. The second portion of the duodenum was normal. Impression: - Abnormal esophageal motility, suspicious for esophageal spasm. - Z-line, 35 cm from the incisors. Biopsied. - Erythematous mucosa in the antrum. Biopsied. - Normal second portion of the duodenum. Recommendation: - Discharge patient to home. - Resume previous diet. - Continue present medications. - Await pathology results. - Repeat upper endoscopy. - Return to GI office. Procedure Code(s): --- Professional --- 59305, Esophagogastroduodenoscopy, flexible, transoral; with biopsy, single or multiple CPT copyright 2017 [employer]. All rights reserved. The codes documented in this report are preliminary and upon death surveys coder review may be revised to meet current compliance requirements. Kurt Daniels DO 12/21/2021 12:30:55 PM This report has been signed electronically. Number of Addenda: 1 Note Initiated On: 12/21/2021 12:09 PM Addendum Number: 1 Addendum Date: 03/07/2022 6:12:29 AM MAC was used as sedation for this procedure. Kurt Daniels DO 03/07/2022 6:12:33 AM This report has been signed electronically.
== END 2021-12-21 13:30 | disposition home or self-care (01) ==
LOC: EN 10:45 → AC 10:51
PROVIDERS: Anesthesiology; PCP Family Medicine; Referring Provider Family Medicine; Visit Provider Internal Medicine Gastroenterology
PROC: 0DJ08ZZ Inspection of Upper Intestinal Tract, Via Natural or Artificial Opening Endoscopic (ICD-10-PCS; CPT 43235; principal; 2021-12-21 11:40)
DX: K22.4 Dyskinesia of esophagus (principal); R13.10 Dysphagia, unspecified; K29.70 Gastritis, unspecified, without bleeding; K20.90 Esophagitis, unspecified without bleeding; Z79.899 Other long term (current) drug therapy
CPT/HCPCS: 43239; 81025; 82274; 88305; 88313; 88342; J7120; J2405

== ENCOUNTER → 2022-01-08 | Outpatient (CLI) | payer MEDICAID, SELFPAY ==
[2022-01-08 10:24] LABS: Absolute Lymphocyte Count 2.15 X10^3/uL (0.83-4.51); Absolute Neutrophil Count 3.2 X10^3/uL (2.0-7.7); Basophil% 1.5 % (0-1); Eosinophil# 0.38 X10^3/uL; Eosinophils% 5.8 % (0-5); Hematocrit 43.6 % (37-47); Hemoglobin 13.4 g/dL (12.0-15.0); Lymphocyte # 2.15 X10^3/ul (0.83-4.51); Lymphocyte % 33.1 % (19-41); Mean Corp Hgb Conc 30.7 g/dL (32-36); Mean Corpuscular Hgb 26.1 pg (27.0-32.0); Mean Corpuscular Volume 84.8 fL (81-99); Mean Platelet Vol. 10.8 fl (6.2-12.0); Monocyte# 0.64 X10^3/uL; Monocyte% 9.8 % (0-10); NRBC Flagged by Analyzer 0 % (0-5); Neutrophil # 3.22 X10^3/uL (2.7-7.7); Neutrophil % 49.6 % (47-70); Platelet Count 306 K/mm3 (150-450); RBC Distribution Width CV 17.3 % (11.6-14.6); RBC Distribution Width SD 53.3 fl (35.1-43.9); Red Blood Count 5.14 M/mm3 (4.2-5.4); White Blood Count 6.5 K/mm3 (4.4-11.0)
[2022-01-08 11:01] LABS: ALB/GLOB Ratio 1.1 RATIO (0.9-2.4); AST(SGOT) 19 U/L (15-37); Alanine Aminotransfer ALT/SGPT 26 U/L (13-56); Albumin, Serum 3.8 g/dL (3.2-5.0); Alkaline Phosphatase 45 U/L (45-117); Anion Gap 4 (5-15); BUN 11 mg/dL (7-18); BUN/Creat Ratio 12.7 RATIO (10-20); Bilirubin, Direct 0.33 mg/dL (0.00-0.30); Chloride 103 mmol/L (98-107); Creatinine, Serum 0.87 mg/dL (0.55-1.02); EST Glomerular Filtration Rate 75 mL/min (>60); Est Glom Filt Rate - Afr Amer 91 mL/min (>60); Ferritin 11 ng/mL (8-252); Globulin 3.6 g/dL (2.2-4.2); Glucose 93 mg/dL (74-106); Iron 121 ug/dL (50-170); Iron Binding Capacity,Total 420 ug/dL (250-450); PERCENT IRON SATURATION 28.8 % (15.0-55.0); Protein, Total 7.4 g/dL (6.4-8.2); Sodium Level 138 mmol/L (136-145)
== END | disposition home or self-care (01) ==
LOC: LAB 09:56
PROVIDERS: PCP Family Medicine; Referring Provider Nurse Practitioner Adult Health; Visit Provider Nurse Practitioner Adult Health
DX: D50.9 Iron deficiency anemia, unspecified (principal); R17 Unspecified jaundice
CPT/HCPCS: 36415; 80053; 82248; 82728; 83540; 83550; 85025

== ENCOUNTER 2022-04-10 13:28 | Day surgery (SDC) | payer MEDICAID, SELFPAY ==
[2022-04-10] VITALS (7 sets, daily range): BP systolic 130–170; BP diastolic 70–88; PULSE 53–66; RESP 14–16; TEMP 36.2–36.9; O2SAT 98–100; BMI 31.5
[2022-04-10 14:01] LABS: Internal QC Validated? YES +Cl - CLEAR BKGD; Pregnancy, Urine Negative Negative
--- NOTE | 2022-04-10 14:02 | HP.PCM_ITS ---
History and Physical Date of Admission: 04/10/22 JEEVAN PRATT, is a 46 F who presents to the office today for discussion of EGD results. EGD was performed because?of food sticking in the esophagus, esophageal spasms, and more recent heartburn.? There is a very strong family history of eosinophilic esophagitis.?She has had esophageal symptoms since college, they had worsened in the past half year.?On EGD Dr Daniels found abnormal esophageal motility, suspicious for spasms. He noted cricopharyngeus was abnormal, spasticity of the esopageal body, distal esophagus/LES is spastic but gives up passage to the endoscope, tertiary peristaltic waves were noted. At her initial visit we started her on pantoprazole 40 mg every morning; the med has been very beneficial--no heartburn, fewer episodes of the esophagus seizing, food not sticking.?Biochemical w/u revealed hemoblobin 10.6, low iron and ferritin levels. No hx of anemia. She is perimenopausal, can have heavy menses--they have been quite heavy the past 2 yrs, gets period every 3-4 weeks. Taking iron supplement bid now. Has RLS--really bad when on menses. Elevated total bilirubin as well as direct bilirubin. We got RUQ US which was normal. 11/10/21 Esophagram: normal 11/10/21 RUQ US: normal She established with our dept on 11/02/21. For years she has sensation of food getting stuck in her midesophagus, especially shredded meats, bread and broccoli.? Has regurgitated food once.? She gets painful spasms in the esophagus which radiate to the back.? For approximately the past 4 months she has had about 1 episode per month of when she lies down to go to bed she gets significant heartburn, and a seizing feeling in her esophagus.? She has to get up out of bed, sits up, takes about 30 minutes to get the esophagus to relax.? She is only recently started getting heartburn.? No prior treatment other than OTC Tums.? The spasms and muscle contractions and seizing of the esophageal muscles are most bothersome to her.? No nausea or vomiting or hematemesis.? She denies any abdominal pain.? She has no bowel complaints.? Denies diarrhea, constipation, melena, hematochezia. Diagnosed last year with mild spinal bifida, takes gabapentin which is effective for back pain, takes meloxicam approx QOD.? Comorbidities also include depression, restless legs, tension for which she was on medication in her 20s. She has 3 children ages 12-17.? 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 No tobacco or illicit drugs.? Only rare alcohol. 12/21/21 EGD Impression: ? - Abnormal esophageal motility, suspicious for ? esophageal spasm. ? - Z-line, 35 cm from the incisors. Biopsied. ? - Erythematous mucosa in the antrum. Biopsied. ? - Normal second portion of the duodenum. MICROSCOPIC DIAGNOSIS A.? Gastric antrum, biopsy: ?Mild gastritis. ?See microscopic description and comment. Neg H pylori B.? Distal esophagus, biopsy: ?A fragment of gastroesophageal mucosa with chronic inflammation. ?Intestinal metaplasia (goblet cell metaplasia) not identified. ?See comment. C.? Esophagus, random biopsy: ?Fragments of squamous epithelium with mild congestion ROS Const Constitutional: No fatigue ENT ENT: No difficulty swallowing Gastro GI: No abdominal pain, belching, bloating, change in bowel habits, change in stool character, coffee ground emesis, constipation, cramping, diarrhea, heartburn, difficulty swallowing, feeling full early, excessive flatus, incontinent of stools, Vomiting blood/hematemesis, Blood in stool, loose stools, Black,tarry stools, nausea/dyspepsia, pain with swallowing, vomiting or other Musc Musculoskeletal: Positive for joint pain, back pain and restless legs Skin Skin: No yellowing of the eye or itchy eyes Neuro Neurology: Positive for restless legs Psych Psychiatric: Positive for anxiety and Positive for depression Endo Endocrine: No fatigue Aller/Imm Allergy/Immunologic: No itchy eyes Priyank/Lymp Hematologic/Lymphatic: No easy bleeding or easy bruising Exam Const General: cooperative, healthy appearing and comfortable Quality Reporting Tobacco Screening ([facility] 138) Smoking Status: Never smoker Assessment and Plan Assessment and Plan (1) Esophageal spasm: ?Status:?Acute ?Plan: We reviewed results from EGD including esophageal spasms, gastritis neg for H pylori, neg for Garcia's. Schedule EGD for Botox to treat esophageal spasms. Continue pantoprazole 40 mg QAM for now. (2) Heartburn: ?Status:?Acute ?Plan: As above (3) Elevated bilirubin: ?Status:?Acute ?Plan: Recheck total and direct bilirubin. No other remarkable findings related to elevated bilirubin found on biochemical w/u. RUQ US was normal. (4) Iron deficiency anemia: ?Status:?Acute ?Plan: ?from heavy menses. Will update labs today. She is on bid iron supplement, take with vit C. (5) Hypertension: ?Status:?Chronic ?Plan: Very high BP today, asymptomatic. Readings at home are typically 150/85. Recommended she call PCP office to get back on antihypertensive (took one in past when she lived in [place]). ? ? ? Orders: Orders Bilirubin, Direct Today D50.9 - Iron deficiency anemia, unspecified, R17 - Uns pecified jaundice ? Comprehensive Metabolic Profil Today D50.9 - Iron deficiency anemia, unspecified, R17 - Unspecified jaundice ? Ferritin Today D50.9 - Iron deficiency anemia, unspecified, R17 - Unspecified jaundice ? Iron+Iron Binding Capacity Today D50.9 - Iron deficiency anemia, unspecified, R17 - Unspecified jaundice ? CBC W/Diff, Automated Today D50.9 - Iron deficiency anemia, unspecified, R17 - Unspecified jaundice ? I have examined the patient and the H&P has been reviewed. There are no clinical changes since date of exam.
[2022-04-10] MEDS: Lactated Ringers 1,000 ML 15 ML IV (14:04)
--- NOTE | 2022-04-10 14:30 | EGD_PTH ---
PATIENT: JEEVAN PRATT LOC: EN U#:[id number] AGE/SX: 46/F ROOM: RE04/10/[address]: Dr. Kurt Daniels DO : 1975 BED: DIS: 04/10/2022 SPEC #: [id number] RECD: 04/10/22 15:17 STATUS: JONO REMary Ann #: [id number] SURY: 04/10/22 14:[address]: Kurt Daniels DEPT: SURGICAL PATHOLOGY RECD BY: Sofia Morton ENTERED: 04/11/22 09:21 SP TYPE: EGD BIOPSY OT DR: Kaley Owusu PA-C Tissues: Esophagus, NOS Procedures: Special Stain Group II Surgery Specimen Level IV Alcian Blue/PAS (control) HEADER OPERATION: [place] with biopsy and Botox injection PRE-OP DIAGNOSIS: Esophageal spasm TISSUE SUBMITTED: Random esophagus biopsy MICROSCOPIC DIAGNOSIS Esophagus, biopsy: Gastroesophageal junctional mucosa with chronic inflammation. Focal changes of reflux. No evidence of goblet cell metaplasia. See comment. AM:polo 04/12/2022 COMMENT Alcian blue/PAS stain with matched control supports the above diagnosis. MICROSCOPIC DESCRIPTION Slides are reviewed. GROSS DESCRIPTION Received in fixative is one container labeled with the patient's name and designated random esophagus. The specimen consists of multiple irregular fragments of light andrade soft tissue that in aggregate measure 2 x 1.5 x 1 cm. The specimen is totally submitted in one cassette. / AM:polo 04/11/2022 TC:3 CPT: 36507, 20054
[2022-04-10] MEDS: 0.9% Normal Saline (Pres. free 10 ML Vial (14:46)
[2022-04-10] MEDS: Botulinum Toxin A 100 Units Vial IJ (14:46)
[2022-04-10] MEDS: 0.9% Saline Lock 10 ML Syringe IV (14:49)
--- NOTE | 2022-04-10 15:10 | OP.CCLET_ITS ---
04/10/2022 [facility] Re : Upper GI endoscopy procedure for Kaye Billy Carminar Umer This procedure was performed on Sunday, April 10, 2022. My impressions and recommendations are as follows: Impressions : - Tortuous esophagus. - Non-obstructing Schatzki ring. - Abnormal esophageal motility, established esophageal spasm. Injected with botulinum toxin. - Small hiatal hernia. - Normal second portion of the duodenum. Recommendations : - Discharge patient to home. - Resume previous diet. - Use Protonix (pantoprazole) 40 mg PO BID for 8 weeks. - Continue present medications. My findings are described in the full procedure note, which is enclosed. If I can be of further assistance, please feel free to contact me at . Sincerely, Kurt Friend, 04/10/2022 3:09:29 PM This report has been signed electronically.
--- NOTE | 2022-04-10 15:10 | OP.EGD_ITS ---
Patient Name: Kaye Billy Procedure Date: 04/10/2022 2:36 PM Date of : 1975 Age: 46 Procedure: Upper GI endoscopy Indications: Dysphagia, Failure to respond to medical treatment Providers: Kurt Daniels DO Referring MD: Kurt Daniels DO Medicines: Monitored Anesthesia Care Patient Profile: This is a 46 year old female. Refer to note in patient chart for documentation of history and physical. Patient has symptoms of chronic chest pain and chronic dysphagia. Complications: No immediate complications. Procedure: Pre-Anesthesia Assessment: - Prior to the procedure, a History and Physical was performed, and patient medications and allergies were reviewed. The risks and benefits of the procedure and the sedation options and risks were discussed with the patient. All questions were answered and informed consent was obtained. Patient identification and proposed procedure were verified by the physician in the pre-procedure area. Mental Status Examination: alert and oriented. Airway Examination: normal oropharyngeal airway and neck mobility. Respiratory Examination: clear to auscultation. CV Examination: normal. Prophylactic Antibiotics: The patient does not require prophylactic antibiotics. Prior Anticoagulants: The patient has taken no previous anticoagulant or antiplatelet agents. After reviewing the risks and benefits, the patient was deemed in satisfactory condition to undergo the procedure. The anesthesia plan was to use monitored anesthesia care (MAC). Immediately prior to administration of medications, the patient was re-assessed for adequacy to receive sedatives. The heart rate, respiratory rate, oxygen saturations, blood pressure, adequacy of pulmonary ventilation, and response to care were monitored throughout the procedure. The physical status of the patient was re-assessed after the procedure. After obtaining informed consent, the endoscope was passed under direct vision. Throughout the procedure, the patient's blood pressure, pulse, and oxygen saturations were monitored continuously. The Endoscope was introduced through the mouth, and advanced to the second part of duodenum. Scope In: 2:44:50 PM Scope Out: 2:59:49 PM Total Procedure Duration Time 0 hours 14 minutes 59 seconds Findings: The examined esophagus was significantly tortuous. Biopsies were obtained from the proximal and distal esophagus with cold forceps for histology of suspected eosinophilic esophagitis. A non-obstructing Schatzki ring was found in the lower third of the esophagus. Abnormal motility was noted in the lower third of the esophagus. The cricopharyngeus was abnormal. There is spasticity of the esophageal body. The distal esophagus/lower esophageal sphincter is patulous. Secondary peristaltic waves are noted. Area was successfully injected with 100 units botulinum toxin. A small hiatal hernia was present. No other significant abnormalities were identified in a careful examination of the stomach. The second portion of the duodenum was normal. Impression: - Tortuous esophagus. - Non-obstructing Schatzki ring. - Abnormal esophageal motility, established esophageal spasm. Injected with botulinum toxin. - Small hiatal hernia. - Normal second portion of the duodenum. Recommendation: - Discharge patient to home. - Resume previous diet. - Use Protonix (pantoprazole) 40 mg PO BID for 8 weeks. - Continue present medications. Procedure Code(s): --- Professional --- 26598, 59, Esophagogastroduodenoscopy, flexible, transoral; with directed submucosal injection(s), any substance 13572, 51, Esophagogastroduodenoscopy, flexible, transoral; with biopsy, single or multiple CPT copyright 2017 [employer]. All rights reserved. The codes documented in this report are preliminary and upon basin cleaner review may be revised to meet current compliance requirements. Kurt Daniels DO 04/10/2022 3:09:29 PM This report has been signed electronically. Number of Addenda: 0 Note Initiated On: 04/10/2022 2:36 PM
== END 2022-04-10 16:08 | disposition home or self-care (01) ==
LOC: EN 13:28 → AC 13:30
PROVIDERS: Anesthesiology; PCP Family Medicine; Referring Provider Internal Medicine Gastroenterology; Visit Provider Internal Medicine Gastroenterology
PROC: 0DJ08ZZ Inspection of Upper Intestinal Tract, Via Natural or Artificial Opening Endoscopic (ICD-10-PCS; CPT 43235; principal; 2022-04-10 14:25)
DX: K22.2 Esophageal obstruction (principal); Q05.9 Spina bifida, unspecified; K21.00 Gastro-esophageal reflux disease with esophagitis, without bleeding; K44.9 Diaphragmatic hernia without obstruction or gangrene; K30 Functional dyspepsia; I10 Essential (primary) hypertension; D50.9 Iron deficiency anemia, unspecified; G25.81 Restless legs syndrome; F41.9 Anxiety disorder, unspecified; J45.909 Unspecified asthma, uncomplicated; Z79.899 Other long term (current) drug therapy
CPT/HCPCS: 43239; 43236; 81025; 88305; 88313; J7120; A4216; J0585; J2405; J3490

== ENCOUNTER → 2022-04-25 | Outpatient (CLI) | payer MEDICAID, SELFPAY ==
[2022-04-25 11:56] LABS: Absolute Lymphocyte Count 2.21 X10^3/uL (0.83-4.51); Absolute Neutrophil Count 4.9 X10^3/uL (2.0-7.7); Basophil# 0.09 X10^3/uL; Basophil% 1.1 % (0-1); Eosinophil# 0.31 X10^3/uL; Eosinophils% 3.8 % (0-5); Hematocrit 44.1 % (37-47); Hemoglobin 14.9 g/dL (12.0-15.0); Lymphocyte # 2.21 X10^3/ul (0.83-4.51); Lymphocyte % 26.8 % (19-41); Mean Corp Hgb Conc 33.8 g/dL (32-36); Mean Corpuscular Hgb 30.6 pg (27.0-32.0); Mean Corpuscular Volume 90.6 fL (81-99); Mean Platelet Vol. 10.5 fl (6.2-12.0); Monocyte# 0.69 X10^3/uL; Monocyte% 8.4 % (0-10); NRBC Flagged by Analyzer 0 % (0-5); Neutrophil # 4.93 X10^3/uL (2.7-7.7); Neutrophil % 59.7 % (47-70); Platelet Count 289 K/mm3 (150-450); RBC Distribution Width CV 12.4 % (11.6-14.6); RBC Distribution Width SD 40.9 fl (35.1-43.9); Red Blood Count 4.87 M/mm3 (4.2-5.4); White Blood Count 8.3 K/mm3 (4.4-11.0)
[2022-04-25 12:23] LABS: Vitamin B12 481 pg/mL (211-911)
[2022-04-25 13:14] LABS: Ferritin 16 ng/mL (8-252); Iron 144 ug/dL (50-170); Iron Binding Capacity,Total 388 ug/dL (250-450); Magnesium 1.9 mg/dL (1.6-2.6); PERCENT IRON SATURATION 37.1 % (15.0-55.0)
== END | disposition home or self-care (01) ==
PROVIDERS: PCP Family Medicine; Referring Provider Nurse Practitioner Adult Health; Visit Provider Nurse Practitioner Adult Health
DX: D64.9 Anemia, unspecified (principal); G25.81 Restless legs syndrome
CPT/HCPCS: 36415; 82607; 82728; 82746; 83540; 83550; 83735; 85025

== ENCOUNTER → 2023-10-16 | Outpatient (CLI) | payer OTHER, SELFPAY ==
[2023-10-16 18:19] LABS: Absolute Lymphocyte Count 2.77 X10^3/uL (0.83-4.51); Absolute Neutrophil Count 4.1 X10^3/uL (2.0-7.7); Basophil# 0.09 X10^3/uL; Basophil% 1.1 % (0-1); Eosinophil# 0.36 X10^3/uL; Eosinophils% 4.4 % (0-5); Hematocrit 38.1 % (37-47); Hemoglobin 11.5 g/dL (12.0-15.0); Lymphocyte # 2.77 X10^3/ul (0.83-4.51); Lymphocyte % 34.2 % (19-41); Mean Corp Hgb Conc 30.2 g/dL (32-36); Mean Corpuscular Volume 82.8 fL (81-99); Mean Platelet Vol. 10.8 fl (6.2-12.0); Monocyte# 0.69 X10^3/uL; Monocyte% 8.5 % (0-10); NRBC Flagged by Analyzer 0 % (0-5); Neutrophil # 4.12 X10^3/uL (2.7-7.7); Neutrophil % 50.9 % (47-70); Platelet Count 388 K/mm3 (150-450); RBC Distribution Width CV 15.2 % (11.6-14.6); RBC Distribution Width SD 45.6 fl (35.1-43.9); White Blood Count 8.1 K/mm3 (4.4-11.0)
[2023-10-16 18:54] LABS: AST(SGOT) 22 U/L (15-37); Alanine Aminotransfer ALT/SGPT 33 U/L (13-56); Anion Gap 7 (5-15); BUN 14 mg/dL (7-18); BUN/Creat Ratio 14.4 RATIO (10-20); Calcium,Total 9.2 mg/dL (8.5-10.1); Chloride 104 mmol/L (98-107); Creatinine, Serum 0.97 mg/dL (0.55-1.02); EST Glomerular Filtration Rate 65 mL/min (>60); Est Glom Filt Rate - Afr Amer 79 mL/min (>60); Glucose 100 mg/dL (74-106); Potassium 3.7 mmol/L (3.5-5.1); Sodium Level 137 mmol/L (136-145)
[2023-10-16 19:54] LABS: Hepatitis B Surface Antibody Reactive; Hepatitis B Surface Antigen Non-Reactive (Nonreactive); Hepatitis C Antibody Non-Reactive (Nonreactive)
[2023-10-18 19:07] LABS: Hepatitis B Core Ab Total Negative (Negative); QNTFERON TB Mitogen Value > 10.00 IU/mL (.); QNTFERON TB Nil Value 0.05 IU/mL (.); QNTFERON TB1+ Ag Value 0.04 IU/mL (.); QNTFERON TB2+ Ag Value 0.04 IU/mL (.); QNTIFERON TB Positive Criteria Negative (Negative)
== END | disposition home or self-care (01) ==
PROVIDERS: PCP Family Medicine; Referring Provider Physician Assistant Medical; Visit Provider Physician Assistant Medical
DX: L40.0 Psoriasis vulgaris (principal); Z79.620 Long term (current) use of immunosuppressive biologic; Z79.899 Other long term (current) drug therapy
CPT/HCPCS: 36415; 80048; 84450; 84460; 85025; 86480; 86704; 86706; 86803; 87340

== ENCOUNTER → 2024-03-23 | Outpatient (CLI) | payer OTHER, SELFPAY ==
[2024-03-23 12:22] LABS: Absolute Lymphocyte Count 2.08 X10^3/uL (0.83-4.51); Basophil# 0.12 X10^3/uL; Basophil% 2.4 % (0-1); Eosinophil# 0.38 X10^3/uL; Eosinophils% 7.6 % (0-5); Hematocrit 40.4 % (37-47); Hemoglobin 12.1 g/dL (12.0-15.0); Lymphocyte # 2.08 X10^3/ul (0.83-4.51); Lymphocyte % 41.4 % (19-41); Mean Corpuscular Hgb 25.2 pg (27.0-32.0); Mean Corpuscular Volume 84.2 fL (81-99); Mean Platelet Vol. 10.7 fl (6.2-12.0); Monocyte# 0.41 X10^3/uL; Monocyte% 8.2 % (0-10); NRBC Flagged by Analyzer 0 % (0-5); Neutrophil # 2.02 X10^3/uL (2.7-7.7); Neutrophil % 40.2 % (47-70); Platelet Count 333 K/mm3 (150-450); RBC Distribution Width CV 15.3 % (11.6-14.6); RBC Distribution Width SD 46.7 fl (35.1-43.9)
[2024-03-23 12:44] LABS: ALB/GLOB Ratio 0.9 RATIO (0.9-2.4); AST(SGOT) 27 U/L (15-37); Alanine Aminotransfer ALT/SGPT 38 U/L (13-56); Albumin, Serum 3.7 g/dL (3.2-5.0); Alkaline Phosphatase 52 U/L (45-117); Anion Gap 5 (5-15); BUN 9 mg/dL (7-18); BUN/Creat Ratio 10.3 RATIO (10-20); Calcium,Total 9.1 mg/dL (8.5-10.1); Chloride 107 mmol/L (98-107); Cholesterol 117 mg/dL (200); Creatinine, Serum 0.88 mg/dL (0.55-1.02); EST Glomerular Filtration Rate 74 mL/min (>60); Est Glom Filt Rate - Afr Amer 89 mL/min (>60); Glucose 94 mg/dL (74-106); High Density Lipoprotein 62 mg/dL; Potassium 3.9 mmol/L (3.5-5.1); Protein, Total 7.7 g/dL (6.4-8.2); Sodium Level 138 mmol/L (136-145); Triglycerides 170 mg/dL; Very Low Density Lipoprotein 34 mg/dL (5-40)
== END | disposition home or self-care (01) ==
LOC: BIMLAB 09:42
PROVIDERS: PCP Internal Medicine; Referring Provider Internal Medicine; Visit Provider Internal Medicine
DX: Z00.00 Encounter for general adult medical examination without abnormal findings (principal)
CPT/HCPCS: 36415; 80053; 80061; 85025

== ENCOUNTER → 2024-10-29 | Outpatient (CLI) | payer OTHER, SELFPAY | END | disposition home or self-care (01) | LOC: LABSPEC 13:32 | PROVIDERS: PCP Internal Medicine; Visit Provider Nurse Practitioner | DX: R39.9 Unspecified symptoms and signs involving the genitourinary system (principal) | CPT/HCPCS: 87086; 87088 ==